=== PATIENT | female | born 1965 ===

== ENCOUNTER 2017-07-15 15:00 | Outpatient (CLI) | payer OTHER ==
[~2017-07-15 15:00] MED LIST: METOPROLOL TART25 MG ORAL; MULTIVITAMINS1 EA11 ORAL
== END 2017-07-15 15:38 | disposition home or self-care (01) ==
LOC: PAN 15:00
DX: A48.8 Other specified bacterial diseases (principal); B96.81 Helicobacter pylori [H. pylori] as the cause of diseases classified elsewhere
CPT/HCPCS: 83013